=== PATIENT | female | born 1975 | race African-American/Black ===

== ENCOUNTER 2016-10-28 16:15 | Emergency (ER) | payer OTHER ==
[~2016-10-28] VITALS: Ht 175.3 cm; Wt 79.4 kg
[2016-10-28 16:22] VITALS: BP 104/68
[2016-10-28] MEDS ORDERED: IBUPROFEN 600 MG TABLET PO ONE ×2 (18:04→18:30)
--- NOTE | 2016-10-28 18:09 | NUR ---
Patient discharged to home in stable condition. Written and verbal after care instructions given. Patient verbalizes understanding of instruction.
== END 2016-10-28 18:10 | disposition home or self-care (01) ==
LOC: ER 16:19
DX: S93.401A Sprain of unspecified ligament of right ankle, initial encounter (principal); X58.XXXA Exposure to other specified factors, initial encounter; Y93.89 Activity, other specified; Y92.89 Other specified places as the place of occurrence of the external cause; Y99.9 Unspecified external cause status
CPT/HCPCS: 73610; 99284; A4606; Z7610